=== PATIENT | female | born 1955 | race Caucasian/White ===

== ENCOUNTER → 2016-10-13 | Outpatient (CLI) | payer BC ==
[2016-10-13 08:56] LABS: BASOPHILS # (AUTO) 0.04 10*3/UL; BASOPHILS % (AUTO) 1.1 % (0-1); EOSINOPHILS % (AUTO) 3.4 % (0-8); HEMATOCRIT 38.6 % (37.0-47.0); HEMOGLOBIN 12.6 g/dL (12.0-16.0); IMM GRAN % (AUTO) 0 % (0-5); IMM GRAN# (AUTO) 0 10*3/UL; LYMPHOCYTES # (AUTO) 1.76 10*3/uL; LYMPHOCYTES % (AUTO) 49.3 % (10-50); MEAN CORPUSCULAR HEMOGLOBIN 32.3 PG (27-31); MEAN CORPUSCULAR HGB CONC 32.6 g/dL (33-37); MEAN PLATELET VOLUME 9.4 FL (7.4-12.2); MONOCYTES % (AUTO) 8.4 % (5-15); NEUTROPHILS # (AUTO) 1.35 10*3/UL; NEUTROPHILS % (AUTO) 37.8 % (50-80); RDW COEFFICIENT OF VARIATION 14.1 % (11.5-14.5); WHITE BLOOD COUNT 3.57 10^3/uL (4.8-10.8)
[2016-10-13 09:09] LABS: PLATELET MORPHOLOGY COMMENT NORMAL MORPHOLOGY (NORM)
== END ==
LOC: LAB 08:39
PROVIDERS: ATTEND Physician Assistant Medical
DX: M32.9 Systemic lupus erythematosus, unspecified (principal); Z79.899 Other long term (current) drug therapy
CPT/HCPCS: 36415; 85025

== ENCOUNTER → 2016-11-17 | Outpatient (CLI) | payer BC | LOC: LAB 07:47 | PROVIDERS: ATTEND Student in an Organized Health Care Education/Training Program | DX: E03.9 Hypothyroidism, unspecified (principal) | CPT/HCPCS: 36415; 84443 ==

== ENCOUNTER → 2016-11-17 | Outpatient (CLI) | payer BC ==
[2016-11-17 08:49] LABS: BASOPHILS # (AUTO) 0.03 10*3/UL; BASOPHILS % (AUTO) 0.9 % (0-1); EOSINOPHILS % (AUTO) 4.3 % (0-8); HEMOGLOBIN 12.2 g/dL (12.0-16.0); IMM GRAN % (AUTO) 0 % (0-5); IMM GRAN# (AUTO) 0 10*3/UL; LYMPHOCYTES # (AUTO) 1.57 10*3/uL; LYMPHOCYTES % (AUTO) 47.9 % (10-50); MEAN CORPUSCULAR HEMOGLOBIN 32.4 PG (27-31); MEAN CORPUSCULAR HGB CONC 32.1 g/dL (33-37); MEAN PLATELET VOLUME 10.4 FL (7.4-12.2); MONOCYTES # (AUTO) 0.32 10*3/UL (0.3-0.8); MONOCYTES % (AUTO) 9.8 % (5-15); NEUTROPHILS # (AUTO) 1.22 10*3/UL; NEUTROPHILS % (AUTO) 37.1 % (50-80); RDW COEFFICIENT OF VARIATION 13.7 % (11.5-14.5); RED BLOOD COUNT 3.77 10^6/uL (4.20-5.40); WHITE BLOOD COUNT 3.28 10^3/uL (4.8-10.8)
[2016-11-17 08:57] LABS: PLATELET MORPHOLOGY COMMENT NORMAL MORPHOLOGY (NORM)
[2016-11-17 08:59] LABS: BILIRUBIN,TOTAL 0.4 mg/dL (0.3-1.2); CALCIUM 9.4 mg/dL (8.7-10.7); POTASSIUM 3.9 meq/L (3.8-5.2); TOTAL PROTEIN 6.7 g/dL (6.1-8.0)
[2016-11-17 10:04] LABS: ERYTHROCYTE SEDIMENTATION RATE 7 MM/HR (0-20)
== END ==
LOC: LAB 07:50
PROVIDERS: ATTEND Internal Medicine Rheumatology
DX: M05.89 Other rheumatoid arthritis with rheumatoid factor of multiple sites (principal); Z79.899 Other long term (current) drug therapy
CPT/HCPCS: 36415; 80053; 85025; 85652

== ENCOUNTER → 2016-12-21 | Outpatient (CLI) | payer BC ==
[2016-12-21 08:08] LABS: BASOPHILS # (AUTO) 0.06 10*3/UL; BASOPHILS % (AUTO) 1.3 % (0-1); EOSINOPHILS # (AUTO) 0.37 10*3/UL; EOSINOPHILS % (AUTO) 8.3 % (0-8); HEMATOCRIT 39.4 % (37.0-47.0); HEMOGLOBIN 12.6 g/dL (12.0-16.0); LYMPHOCYTES # (AUTO) 1.77 10*3/uL; MEAN CORPUSCULAR HEMOGLOBIN 32.1 PG (27-31); MEAN CORPUSCULAR VOLUME 100.3 FL (81-99); MEAN PLATELET VOLUME 9.9 FL (7.4-12.2); MONOCYTES # (AUTO) 0.45 10*3/UL (0.3-0.8); MONOCYTES % (AUTO) 10.1 % (5-15); NEUTROPHILS # (AUTO) 1.79 10*3/UL; NEUTROPHILS % (AUTO) 40.3 % (50-80); RED BLOOD COUNT 3.93 10^6/uL (4.20-5.40)
[2016-12-21 08:17] LABS: PLATELET MORPHOLOGY COMMENT NORMAL MORPHOLOGY (NORM); RBC MORPHOLOGY COMMENT NORMAL MORPHOLOGY (NORM); WBC MORPHOLOGY COMMENT NORMAL MORPHOLOGY (NORM)
[2016-12-21 08:34] LABS: BLOOD UREA NITROGEN 14 mg/dL (7-22); BUN/CREATININE RATIO 15.55 (6-20); CALCIUM 9.3 mg/dL (8.7-10.7); EST GLOMERULAR FILTRATION > 60 (>60 ml/min/1.73m(2)); SERUM ALBUMIN 4.4 g/dL (3.5-4.8)
[2016-12-21 08:54] LABS: ERYTHROCYTE SEDIMENTATION RATE 12 MM/HR (0-20)
--- NOTE | 2016-12-21 12:09 | DI ---
XR HAND 2VW,12/21/2016 7:45 AM: Clinical History: Rheumatoid arthritis. Previous Exam: August 26, 2015. Findings: A single view of the right hand is obtained, and demonstrates anatomic alignment without fractures. T here is normal mineralization. Joint spaces are preserved. There are no bony erosion is identified. The surrounding soft tissues are unremarkable. Impression: Normal right hand.
--- NOTE | 2016-12-21 12:13 | DI ---
XR HAND 2VW,12/21/2016 7:46 AM: Clinical History: Rheumatoid arthritis. Previous Exam: August 2015 Findings: A single view of the left hand is obtained, and demonstrates anatomic alignment without fractures. Joint spaces are preserved. There is question of a bony erosion involving the radial surface of the lunate. The surrounding soft tissues are unremarkable. Mineralization is within normal limits. Impression: 1. Likely bony erosion involving the left lunate. No other findings of rheumatoid arthritis.
--- NOTE | 2016-12-21 12:15 | DI ---
XR FOOT 2VW,12/21/2016 7:46 AM: Clinical History: Rheumatoid arthritis Previous Exam: August 2015 Findings: A single view of the left foot is obtained, and demonstrates anatomic alignment without fractures. Th ere are no bony erosions. There is normal mineralization. There is very minimal degenerative change of the left first metatarsophalangeal joint. The surrounding soft tissues are unremarkable. Impression: No evidence of rheumatoid arthritis.
--- NOTE | 2016-12-21 12:15 | DI ---
XR FOOT 2VW,12/21/2016 7:45 AM: Clinical History: Right foot pain. Previous Exam: August 26, 2015 Findings: A single view of the right foot is obtained, and demonstrates anatomic alignment without fractures. T he surrounding soft tissues are unremarkable. Impression: Normal right foot.
[2016-12-22 13:39] LABS: HEPATITIS B CORE AB, TOTAL Negative (Negative); HEPATITIS B SURFACE AG Negative (Negative)
[2016-12-23 07:20] LABS: RHEUMATOID FACTOR <15 IU/mL (<15)
[2016-12-23 12:57] LABS: DNA DS AB <12.3 IU/mL (())
[2016-12-24 13:45] LABS: QUANTIFERON-TB GOLD RESULT Negative (Negative)
== END ==
LOC: LAB 07:40
PROVIDERS: ATTEND Physician Assistant Medical
DX: M05.89 Other rheumatoid arthritis with rheumatoid factor of multiple sites (principal); R76.0 Raised antibody titer; Z79.899 Other long term (current) drug therapy
CPT/HCPCS: 36415; 73120; 73620; 80053; 85025; 85652; 86038; 86200; 86225; 86431; 86480; 86704; 86803; 87340